=== PATIENT | male | born 1985 | race Caucasian/White ===

== ENCOUNTER 2017-06-22 16:28 | Emergency (ER) | payer MEDICAID ==
[~2017-06-22] VITALS: Ht 180.3 cm; Wt 93.0 kg
[2017-06-22 16:55] VITALS: BP_SYST 138
--- NOTE | 2017-06-22 18:08 | NUR ---
Pt was brought to bed 8 with a laceration to left index finger, pt states was using a saw to cut wood and cut finger. The finger is wrapped in paper towels, there is a small cut to finger, no noted deformity noted. No other injuries/complaints per pt or noted.
--- NOTE | 2017-06-22 18:10 | NUR ---
Left finger was cleaned with NS and waiting for x ray.
--- NOTE | 2017-06-22 18:10 | NUR ---
ER CHIKIS Vázquez at bedside examining patient.
[2017-06-22] MEDS ORDERED: HYDROcodone/ACETAMIN 7.5-325 MG TAB PO ONE (18:30)
[2017-06-22] MEDS ORDERED: BACITRACIN 1 GM OINT TP ONE (18:30)
--- NOTE | 2017-06-22 18:30 | NUR ---
Pt went to radiology in stable condition
--- NOTE | 2017-06-22 18:45 | NUR ---
Pt returned from radiology in stable condition
--- NOTE | 2017-06-22 19:00 | NUR ---
Tech dressed and splinted the left finger, pt tolerated well.
[2017-06-22 19:11] VITALS: BP_SYST 135
--- NOTE | 2017-06-22 19:11 | NUR ---
Patient given written and verbal discharge instructions and verbalizes understanding. ER MD discussed with patient the results and treatment provided. Patient in stable condition. ID arm band removed. Rx of bacitracin and motrin given. Patient educated on pain management and to follow up with PMD. Pain Scale 4. Kathie is aware, pain medication was given here and prescription for home, pt states will take medication at home. Opportunity for questions provided and answered.
== END 2017-06-22 19:11 | disposition home or self-care (01) ==
LOC: SED 16:28
DX: S61.211A Laceration without foreign body of left index finger without damage to nail, initial encounter (principal); W31.89XA Contact with other specified machinery, initial encounter; Y93.89 Activity, other specified; Y92.89 Other specified places as the place of occurrence of the external cause; Y99.8 Other external cause status
CPT/HCPCS: 73140-TC; 99284

== ENCOUNTER 2017-10-23 21:24 | Emergency (ER) | payer SELFPAY ==
[~2017-10-23] VITALS: Ht 180.3 cm; Wt 90.7 kg
[2017-10-23 21:35] VITALS: BP_SYST 125
--- NOTE | 2017-10-23 22:02 | NUR ---
Patient to ER bed 8 to gown for evaluation. Side rails up. Report given to LONNIE FRANKLIN.
--- NOTE | 2017-10-23 22:05 | NUR ---
Pt alert and oriented x4. Pt C/O right eye pain for past 4 days, 9/10. Pain appears red, no drainage noted. States he is sensitive to light. Eye patch over right eye. No signs of SOB or acute distress noted. Will continue to monitor.
--- NOTE | 2017-10-23 22:30 | NUR ---
JAMSHID MERLOS AT BEDSIDE EXAMINING PATIENT.
[2017-10-23 22:50] VITALS: BP_SYST 125
--- NOTE | 2017-10-23 22:50 | NUR ---
Patient given written and verbal discharge instructions and verbalizes understanding. ER MD Gilmore discussed with patient the results and treatment provided. Patient in stable condition. ID arm band removed. Rx of Acular,and Ciloxan given. Patient educated on pain management and to follow up with PMD. Pain Scale 2/10. Opportunity for questions provided and answered.
== END 2017-10-23 22:50 | disposition home or self-care (01) ==
LOC: SED 21:24
DX: H10.9 Unspecified conjunctivitis (principal)
CPT/HCPCS: 99283

== ENCOUNTER 2018-02-08 22:31 | Emergency (ER) | payer OTHER ==
[~2018-02-08] VITALS: Ht 188 cm; Wt 99.8 kg
[2018-02-08 22:33] VITALS: BP_SYST 129
[2018-02-08 23:45] VITALS: BP_SYST 129
== END 2018-02-08 23:45 ==
LOC: SED 22:31
DX: Z02.89 Encounter for other administrative examinations (principal)